=== PATIENT | female | born 1950 | race Caucasian/White ===

== ENCOUNTER 2018-09-02 19:54 | Emergency (ER) | payer MEDICARE ==
[~2018-09-02] VITALS: Ht 162.6 cm; Wt 63.5 kg
--- NOTE | 2018-09-02 19:59 | NUR ---
PT IN RESTROOM WHEN CALLED FOR TRIAGE
[2018-09-02] MEDS ORDERED: LIDOCAINE-MPF 1%, 5ML INFIL ONE (20:30)
--- NOTE | 2018-09-02 21:05 | NUR ---
PA AT BEDSIDE FOR WOUND REPAIR
[2018-09-02 21:14] VITALS: BP 107/70
== END 2018-09-02 21:17 | disposition home or self-care (01) ==
LOC: ED 21:05
DX: S61.210A Laceration without foreign body of right index finger without damage to nail, initial encounter (principal); W26.0XXA Contact with knife, initial encounter; Y93.89 Activity, other specified; Y92.009 Unspecified place in unspecified non-institutional (private) residence as the place of occurrence of the external cause; Y99.8 Other external cause status
CPT/HCPCS: 12001; 99283